=== PATIENT | female | born 1980 | race African-American/Black ===

== ENCOUNTER 2022-01-13 08:20 | Emergency (ER) | payer SELFPAY ==
[2022-01-13] MEDS ORDERED: HYDROCODONE/APAP 10/325 TAB ONE (08:41)
[2022-01-13] MEDS ORDERED: CLINDAMYCIN IV 150 MG/ML (4 mL) VIAL ONE (08:46)
--- NOTE | 2022-01-13 08:54 | ER ---
Nurse's Notes [facility] Name: Bre Waldron Age: 41 yrs Sex: Female : 1980 Arrival Date: 01/13/2022 Time: 08:22 Bed 5 Private MD: None, None Diagnosis: Dental Pain Presentation: 01/13 08:28 Chief complaint: Patient states: Left lower jaw tooth/gum pain for 2 days. Swelling got ll1 bad today. No fever. Coronavirus screen: Vaccine status: Patient reports receiving the 2nd dose of the covid vaccine. Client denies travel out of the [place] in the last 14 days. At this time, the client does not indicate any symptoms associated with coronavirus-19. Ebola Screen: Patient denies travel to an Ebola-affected area in the 21 days before illness onset. Initial Sepsis Screen: Does the patient meet any 2 criteria? No. Patient's initial sepsis screen is negative. Does the patient have a suspected source of infection? Yes: Other: tooth/gum pain swelling. Risk Assessment: Do you want to hurt yourself or someone else? Patient reports no desire to harm self or others. Onset of symptoms was January 12, 2022. 08:28 Method Of Arrival: Ambulatory ll1 08:28 Acuity: ANGELINE 4 ll1 Triage Assessment: 08:29 General: Appears uncomfortable, Behavior is cooperative, appropriate for age. Pain: ll1 Complains of pain in L jaw Quality of pain is described as aching. EENT: Reports pain in left jaw. 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 - Social history:: Smoking status: Patient denies any tobacco usage or history of. Screenin:29 Abuse screen: Denies threats or abuse. Nutritional screening: No deficits noted. vg1 Tuberculosis screening: No symptoms or risk factors identified. Fall Risk None identified. Assessment: 08:29 General: Appears uncomfortable, Behavior is cooperative. Pain: Complains of pain in vg1 mouth Pain currently is 10 out of 10 on a pain scale. Pain began 1 day ago. Neuro: Level of Consciousness is awake, alert, obeys commands, Oriented to person, place, time, situation. Cardiovascular: Patient's skin is warm and dry. Respiratory: Airway is patent Respiratory effort is even, unlabored. GI: No signs and/or symptoms were reported involving the gastrointestinal system. : No signs and/or symptoms were reported regarding the genitourinary system. EENT: Oral mucosa is moist. Derm: Skin is intact, is healthy with good turgor. Musculoskeletal: Swelling present in mouth. Vital Signs: 08:28 Resp 16; Temp 98.2(O); Weight 91.63 kg; Height 5 ft. 6 in. (167.64 cm); Pain 10/10; ll1 08:32 BP 143 / 94; Pulse 90; vg1 09:02 BP 118 / 66; Pulse 81; Resp 16; Pulse Ox 100% on R/A; ll1 08:28 Body Mass Index 32.60 (91.63 kg, 167.64 cm) 1 ED Course: 08:22 Patient arrived in ED. ds1 08:22 None, None is Private Physician. ds1 08:23 Chance Rogers PA is PHCP. jm 08:23 Herminio Nolasco MD is Attending Physician. jm 08:24 Shelbi Redd, RN is Primary Nurse. vg1 08:27 Arm band placed on Patient placed in an exam room, on a stretcher. ll1 08:29 Triage completed. ll1 08:29 Patient has correct armband on for positive identification. Bed in low position. Call vg1 light in reach. Side rails up X 1. Adult w/ patient. 08:53 Kwasi Shell DDS is Referral Physician. [facility] 09:02 No provider procedures requiring assistance completed. Patient did not have IV access ll1 during this emergency room visit. Administered Medications: 08:40 Drug: [place] (HYDROcodone-acetaminophen) 10 mg-325 mg 1 tabs Route: PO; vg1 09:02 Follow up: Response: No adverse reaction; Pain is decreased; RASS: Alert and Calm (0) ll1 08:51 Drug: Clindamycin 600 mg {Note: 2 mL to Left gluteus and 2 mL to Right gluteus.} Route: vg1 IM; Site: left gluteus; 09:02 Follow up: Response: No adverse reaction ll1 Outcome: 08:53 Discharge ordered by MD. tao 09:02 Discharged to home ambulatory. ll1 09:02 Condition: stable 09:02 Discharge instructions given to patient, Instructed on discharge instructions, follow up and referral plans. no drinking with medication, no driving heavy equipment, medication usage, Demonstrated understanding of instructions, follow-up care, medications, Prescriptions given X 3. 09:02 Patient left the ED. ll1 Signatures: Chance Rogers PA PA jmm Sanford, Demi ds1 Shelbi Redd, RN RN vg1 Ronan Prieto RN RN ll1 Corrections: (The following items were deleted from the chart) 08:28 08:27 Allergies: No Known Allergies; 1 ll1
--- NOTE | 2022-01-13 08:54 | EDPHYS ---
Physician Documentation [facility] Name: Bre Waldron Age: 41 yrs Sex: Female : 1980 Arrival Date: 01/13/2022 Time: 08:22 Bed 5 Private MD: None, None ED Physician Herminio Nolasco HPI: 01/13 08:30 This 41 yrs old Black Female presents to ER via Ambulatory with complaints of Facial jmm Swelling. 08:30 The patient presents with pain, swelling. Onset: The symptoms/episode began/occurred jmm gradually, 2 day(s) ago. Duration: The symptoms are continuous. Modifying factors: The symptoms are alleviated by nothing, the symptoms are aggravated by nothing. Associated signs and symptoms: Pertinent positives: pain, swelling, Pertinent negatives: fever. It is unknown whether or not the patient has had similar symptoms in the past. 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 - Social history:: Smoking status: Patient denies any tobacco usage or history of. ROS: 08:30 Constitutional: Negative for fever, chills, and weight loss, Eyes: Negative for injury, jmm pain, redness, and discharge. 08:30 ENT: Positive for dental pain. 08:30 All other systems are negative. Exam: 08:30 Head/Face: atraumatic. Eyes: EOMI, no conjunctival erythema appreciated jmm 08:30 Neck: Trachea midline, Supple Chest/axilla: Normal chest wall appearance and motion. Cardiovascular: Regular rate and rhythm. No edema appreciated Respiratory: Normal respirations, no respiratory distress appreciated Abdomen/GI: Non distended, soft Back: Normal ROM Skin: General appearance color normal MS/ Extremity: Moves all extremities, no obvious deformities appreciated, no edema noted to the lower extremities Neuro: Awake and alert Psych: Behavior is normal, Mood is normal, Patient is cooperative and pleasant 08:30 Constitutional: The patient appears alert, awake, uncomfortable. 08:30 ENT: Posterior pharynx: is normal, Dental exam: gum swelling, that is moderate, specifically in the lower left third molar (#17), lower left second molar (#18), lower left first molar (#19) and lower left second bicuspid (#20). Vital Signs: 08:28 Resp 16; Temp 98.2(O); Weight 91.63 kg; Height 5 ft. 6 in. (167.64 cm); Pain 10/10; ll1 08:32 BP 143 / 94; Pulse 90; vg1 09:02 BP 118 / 66; Pulse 81; Resp 16; Pulse Ox 100% on R/A; ll1 08:28 Body Mass Index 32.60 (91.63 kg, 167.64 cm) ll1 MDM: 08:30 Patient medically screened. [facility] 08:52 Data reviewed: vital signs, nurses notes. Counseling: I had a detailed discussion with dinh the patient and/or guardian regarding: the historical points, exam findings, and any diagnostic results supporting the discharge/admit diagnosis, the need for outpatient follow up, to return to the emergency department if symptoms worsen or persist or if there are any questions or concerns that arise at home. ED course: Patient is alert and non toxic in appearance in the ED. I do not suspect ludwigs. Patient advised to follow up with oral surgery and otherwise given strict return precautions. Patient understood and agrees with the plan of care. . Administered Medications: 08:40 Drug: [place] (HYDROcodone-acetaminophen) 10 mg-325 mg 1 tabs Route: PO; vg1 09:02 Follow up: Response: No adverse reaction; Pain is decreased; RASS: Alert and Calm (0) ll1 08:51 Drug: Clindamycin 600 mg {Note: 2 mL to Left gluteus and 2 mL to Right gluteus.} Route: vg1 IM; Site: left gluteus; 09:02 Follow up: Response: No adverse reaction ll1 Disposition: 13:24 Co-signature as Attending Physician, Herminio Nolasco MD I agree with the assessment and kdr plan of care. Disposition Summary: 01/13/22 08:53 Discharge Ordered Location: Home [facility] Condition: Stable [facility] Diagnosis - Dental Pain [facility] Followup: [facility] - With: Kwasi Shell DDS - When: 2 - 3 days - Reason: Recheck today's complaints, Continuance of care, Re-evaluation by your physician Discharge Instructions: - Discharge Summary Sheet m - Dental Pain [facility] Forms: - Medication Reconciliation Form jm - Thank You Letter jm - Antibiotic Education [facility] - Prescription Opioid Use [facility] Prescriptions: - Peridex 0.12 % Mucous Membrane mouthwash - place 15 milliliter by MUCOUS MEMBRANE route 2 times per day after brushing jmm teeth, swish in mouth for 30 seconds then spit out; 200 milliliter; Refills: 0, Product Selection Permitted - Ultracet 37.5-325 mg Oral Tablet - take 1 tablet by ORAL route every 6 hours - for up to 5 days; do not exceed 8 jmm tablets per day.; 12 tablet; Refills: 0, Product Selection Permitted - Clindamycin HCl 300 mg Oral Capsule - take 1 capsule by ORAL route every 6 hours for 10 days; 40 capsule; Refills: 0, jmm Product Selection Permitted Signatures: Herminio Nolasco MD MD kdr Mickail, Joel, PA PA jmm Garcia, Victoria, RN RN vg1 Ronan Prieto RN RN ll1 Corrections: (The following items were deleted from the chart) 08:28 08:27 Allergies: No Known Allergies; ll1 ll1
[2022-01-13 09:08] VITALS: TEMP 98.2
[2022-01-13 09:10] VITALS: BP 118/66; O2SAT 100
== END 2022-01-13 09:02 | disposition home or self-care (01) ==
LOC: ER 08:20
DX: K08.89 Other specified disorders of teeth and supporting structures (principal); Z91.030 Bee allergy status
CPT/HCPCS: S0077

== ENCOUNTER 2022-09-22 12:35 | Emergency (ER) | payer SELFPAY ==
--- OUTSIDE RECORDS SUMMARY | 2022-09-22 12:39 | XMS REPORT | Continuity of Care Document ---
:1980 Author Organization [facility] t Address [address] [place] [address] [place] [id number] Care Team Providers Name Role Phone Unavailable Unavailable Unavailable Problems This patient has no known problems. Allergies, Adverse Reactions, Alerts This patient has no known allergies or adverse reactions. Medications This patient has no known medications. Procedures This patient has no known procedures. Encounters Start End Encounter Admission Attending Care Care Encounter Source Date/Time Date/Time Type Type Clinicians Facility Department ID 2022-07-28 2022-07-28 Outpatient [facility] [id number] William 09:11:49 09:11:49 110Earl F Fabiano Results This patient has no known results.
--- NOTE | 2022-09-22 13:29 | RAD REPORT ---
EXAM DESCRIPTION: Anjali So (2 Views)09/22/2022 1:17 pm CLINICAL HISTORY: Cough COMPARISON: 2012 FINDINGS: The lungs appear clear of acute infiltrate. The heart is normal size IMPRESSION: No acute abnormalities displayed
[2022-09-22 13:57] LABS: Absolute Lymphocytes (CBC) 2.7 K/uL (0.7-4.9); Hematocrit 31.9 % (36.0-45.0); Lymphocytes % 31.3 % (15.3-44.8); MCV 74.4 fL (80-100); MPV 7.7 fL (7.6-11.3); RBC Red Blood Cell Count 4.29 M/uL (3.86-4.86)
[2022-09-22 14:07] LABS: Urine Blood Negative (Negative); Urine Glucose Negative (Negative); Urine Protein Negative (Negative); Urine pH 6.5 (5.0-7.0)
[2022-09-22 14:15] LABS: ALT/SGPT 13 U/L (13-56); AST/SGOT 11 U/L (15-37); Albumin 3.5 g/dL (3.4-5.0); Alkaline Phosphatase 118 U/L (45-117); BUN Blood Urea Nitrogen 10 mg/dL (7-18); Bicarbonate 26 mmol/L (21-32); Glomerular Filtration Rate 117 ml/min (=/>90); Glucose Level 93 mg/dL (74-106); NT PRO-BNP 177 pg/mL (<125); Potassium 3.9 mmol/L (3.5-5.1); Protein, Total 7.8 g/dL (6.4-8.2); Sodium Level 137 mmol/L (136-145)
[2022-09-22] MEDS ORDERED: NA CHLORIDE 0.9% 1,000 ML ONE (14:15)
[2022-09-22 14:17] LABS: Bilirubin Total < 0.1 mg/dL (0.2-1.0)
[2022-09-22 14:47] LABS: SARS-COV-2 RT PCR POSITIVE (NEGATIVE)
--- NOTE | 2022-09-22 14:54 | EDPHYS ---
Physician Documentation [facility] Name: Bre Waldron Age: 42 yrs Sex: Female : 1980 Arrival Date: 09/22/2022 Time: 12:37 Bed 26 Private MD: ED Physician Kimani Newton HPI: 09/22 14:44 This 42 yrs old Black Female presents to ER via Ambulatory with complaints of Flu ellen Symptoms, Breathing Difficulty. 14:44 The patient has shortness of breath at rest, with light activity. Onset: The ellen symptoms/episode began/occurred 3 day(s) ago. Duration: The symptoms are intermittent, with no pattern. The patient's shortness of breath is aggravated by coughing, is alleviated by nothing. Associated signs and symptoms: Pertinent positives: non-productive cough, productive cough. Severity of symptoms: At their worst the symptoms were mild in the emergency department the symptoms are unchanged. The patient has not experienced similar symptoms in the past. . 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 - Social history:: Smoking status: Patient denies any tobacco usage or history of. ROS: 14:48 Constitutional: Negative for fever, chills, and weight loss, Eyes: Negative for injury, ellen pain, redness, and discharge, ENT: Negative for injury, pain, and discharge, Neck: Negative for injury, pain, and swelling, Cardiovascular: Negative for chest pain, palpitations, and edema, Abdomen/GI: Negative for abdominal pain, nausea, vomiting, diarrhea, and constipation, Back: Negative for injury and pain, : Negative for injury, bleeding, discharge, and swelling, MS/Extremity: Negative for injury and deformity, Skin: Negative for injury, rash, and discoloration, Neuro: Negative for headache, weakness, numbness, tingling, and seizure, Psych: Negative for depression, anxiety, suicide ideation, homicidal ideation, and hallucinations, Allergy/Immunology: Negative for hives, rash, and allergies, Endocrine: Negative for neck swelling, polydipsia, polyuria, polyphagia, and marked weight changes, Hematologic/Lymphatic: Negative for swollen nodes, abnormal bleeding, and unusual bruising. 14:48 Cardiovascular: Positive for 14:48 Respiratory: Positive for cough, hemoptysis, shortness of breath, at rest. Exam: 14:48 Constitutional: This is a well developed, well nourished patient who is awake, alert, ellen and in no acute distress. Head/Face: Normocephalic, atraumatic. Eyes: Pupils equal round and reactive to light, extra-ocular motions intact. Lids and lashes normal. Conjunctiva and sclera are non-icteric and not injected. Cornea within normal limits. Periorbital areas with no swelling, redness, or edema. ENT: Nares patent. No nasal discharge, no septal abnormalities noted. Tympanic membranes are normal and external auditory canals are clear. Oropharynx with no redness, swelling, or masses, exudates, or evidence of obstruction, uvula midline. Mucous membranes moist. Neck: Trachea midline, no thyromegaly or masses palpated, and no cervical lymphadenopathy. Supple, full range of motion without nuchal rigidity, or vertebral point tenderness. No Meningismus. Chest/axilla: Normal chest wall appearance and motion. Nontender with no deformity. No lesions are appreciated. Cardiovascular: Regular rate and rhythm with a normal S1 and S2. No gallops, murmurs, or rubs. Normal PMI, no JVD. No pulse deficits. Respiratory: Lungs have equal breath sounds bilaterally, clear to auscultation and percussion. No rales, rhonchi or wheezes noted. No increased work of breathing, no retractions or nasal flaring. Abdomen/GI: Soft, non-tender, with normal bowel sounds. No distension or tympany. No guarding or rebound. No evidence of tenderness throughout. Back: No spinal tenderness. No costovertebral tenderness. Full range of motion. Female : Normal external genitalia. Skin: Warm, dry with normal turgor. Normal color with no rashes, no lesions, and no evidence of cellulitis. MS/ Extremity: Pulses equal, no cyanosis. Neurovascular intact. Full, normal range of motion. Neuro: Awake and alert, GCS 15, oriented to person, place, time, and situation. Cranial nerves II-XII grossly intact. Motor strength 5/5 in all extremities. Sensory grossly intact. Cerebellar exam normal. Normal gait. Psych: Awake, alert, with orientation to person, place and time. Behavior, mood, and affect are within normal limits. 14:48 Musculoskeletal/extremity: Extremities: all appear grossly normal, with no appreciated pain with palpation, ROM: no acute changes, intact in all extremities, Circulation is intact in all extremities. Sensation intact. Compartment Syndrome exam of affected extremity: is normal. DVT Exam: No signs of deep vein thrombosis. no pain, no swelling, no tenderness, negative Homans' sign noted on exam, no appreciated bluish discoloration, no erythema, no increased warmth. Vital Signs: 12:58 BP 183 / 98; Pulse 92; Resp 18; Temp 97.9; Pulse Ox 100% ; Weight 97.52 kg; Height 5 ap3 ft. 5 in. (165.10 cm); 14:00 BP 159 / 102; Pulse 80; Resp 16; Pulse Ox 100% on R/A; eh3 15:00 BP 183 / 101; Pulse 88; Resp 18; Pulse Ox 100% on R/A; eh3 12:58 Body Mass Index 35.78 (97.52 kg, 165.10 cm) ap3 MDM: 12:39 Patient medically screened. ellen 14:51 Differential diagnosis: asthma, Bronchitis CHF exacerbation, Chronic Obstructive ellen Pulmonary Disease pneumonia, pulmonary edema, Pulmonary Embolism reactive airway disease, Sepsis Unstable Angina. Antibiotic administration: The patient is discharged and will get outpatient antibiotics, Zithromax. The patient's Wells Deep Vein Thrombosis Score was calculated as follows: No Risks (0 Pts). The patient's pulmonary embolism risk score was calculated as follows: Total Score: 0-2 points. This patient was found to be at low risk for a pulmonary embolism by using the Well's assessment criteria. Immunization status:. Data reviewed: vital signs, nurses notes, lab test result(s), radiologic studies, plain films. Data interpreted: school bus monitor: not applicable for this patient encounter. rate is 92 beats/min, rhythm is regular. Test interpretation: by ED physician or midlevel provider: plain radiologic studies. Counseling: I had a detailed discussion with the patient and/or guardian regarding: the historical points, exam findings, and any diagnostic results supporting the discharge/admit diagnosis, lab results, radiology results, the need for outpatient follow up, for definitive care, a family practitioner. 09/22 12:39 Order name: CBC with Diff; Complete Time: 14:33 [facility] 09/22 12:39 Order name: Comprehensive Metabolic Panel; Complete Time: 14:33 [facility] 09/22 12:39 Order name: Blood Culture Adult (2) [facility] 09/22 12:39 Order name: Lactate w/ 2H reflex if indic.; Complete Time: 14:33 [facility] 09/22 12:39 Order name: COVID-19/FLU A+B [facility] 09/22 12:39 Order name: BNP; Complete Time: 14:33 [facility] 09/22 12:39 Order name: Chest Pa And Lat (2 Views) XRAY; Complete Time: 14:33 [facility] 09/22 12:39 Order name: Urine Dipstick-Ancillary (obtain specimen); Complete Time: 14:08 [facility] 09/22 12:39 Order name: Urine Test (obtain specimen); Complete Time: 14:08 [facility] 09/22 14:07 Order name: Urine Dipstick-Ancillary; Complete Time: 14:33 [facility] 09/22 14:15 Order name: Urine --Ancillary (enter results); Complete Time: 14:33 bd Administered Medications: 14:30 Drug: NS 0.9% 1000 ml Route: IV; Rate: 1 bolus; Site: right antecubital; 3 15:30 Follow up: IV Status: IV converted to saline lock; IV Intake: 600ml [facility] 15:30 Drug: Zithromax (azithromycin) 500 mg Route: PO; 3 15:30 Follow up: Response: Medication administered at discharge. 3 15:30 Drug: Pepcid (famotidine) 40 mg Route: PO; 3 15:30 Follow up: Response: Medication administered at discharge. 3 Disposition Summary: 09/22/22 14:53 Discharge Ordered Location: Home ellen Problem: new ellen Symptoms: have improved ellen Condition: Stable ellen Diagnosis - Coronavirus infection, unspecified ellen - SARS-associated coronavirus as the cause of diseases classified elsewhere ellen - Acute upper respiratory infection, unspecified ellen Followup: ellen - With: Private Physician - When: 2 - 3 days - Reason: Recheck today's complaints, Continuance of care, Re-evaluation by your physician Followup: ellen - With: Brennen Nielson DO - When: As needed - Reason: Discharge Instructions: - Discharge Summary Sheet ellen - Upper Respiratory Infection, Adult ellen - Cool Mist Vaporizer ellen - Upper Respiratory Infection, Adult, [id number] ellen - Cough, Adult ellen - COVID-19 ellen - COVID-19 Frequently Asked Questions [facility] - Things to Know about the COVID-19 Pandemic - [facility] - 10 Things You Can Do to Manage Your COVID-19 Symptoms at Home - [facility] Forms: - Medication Reconciliation Form [facility] - Thank You Letter ellen - Antibiotic Education [facility] - Prescription Opioid Use [facility] Prescriptions: - Paxlovid (EUA) 150 mg x 2- 100 mg Oral tablet - take 3 tablet by ORAL route 2 times per day per package directions; 30 tablet; ellen Refills: 0, Product Selection Permitted - budesonide 180 mcg/actuation Inhalation aerosol powdr breath activated - inhale 2 puff by INHALATION route 2 times per day; 1 Pump; Refills: 0, Product [facility] Selection Permitted - Tessalon Perles 100 mg Oral Capsule - take 2 capsule by ORAL route every 8 hours As needed; 36 capsule; Refills: 0, [facility] Product Selection Permitted - Pepcid 20 mg Oral Tablet - take 1 tablet by ORAL route every 12 hours for 21 days; 42 tablet; Refills: 0, [facility] Product Selection Permitted - Zithromax Z-Ramesh 250 mg Oral Tablet - take 1 tablet by ORAL route as directed for 5 days Day 1 - take two (2) tablets [facility] one time. Day 2, 3, 4 , 5 take one (1) tablet once daily.; 6 tablet; Refills: 0, Product Selection Permitted Signatures: Dispatcher [employer] Kimani Hernandez MD MD cha Prokisch, Amanda, RN RN ap3 Yakelin August RN RN eh3
--- NOTE | 2022-09-22 14:54 | ER ---
Nurse's Notes [facility] Name: Bre Waldron Age: 42 yrs Sex: Female : 1980 Arrival Date: 09/22/2022 Time: 12:37 Bed 26 Private MD: Diagnosis: Coronavirus infection, unspecified;SARS-associated coronavirus as the cause of diseases classified elsewhere;Acute upper respiratory infection, unspecified Presentation: 09/22 12:58 Chief complaint: Patient states: she has had flu symptoms since Tuesday09/20/2022. ap3 Patient complains of cough, congestion, body aches, chills, and bloody mucous. Coronavirus screen: Client presents with at least one sign or symptom that may indicate coronavirus-19. Ebola Screen: No symptoms or risks identified at this time. Initial Sepsis Screen: Does the patient meet any 2 criteria? No. Patient's initial sepsis screen is negative. Does the patient have a suspected source of infection? No. Patient's initial sepsis screen is negative. Risk Assessment: Do you want to hurt yourself or someone else? Patient reports no desire to harm self or others. Onset of symptoms was September 20, 2022. 12:58 Method Of Arrival: Ambulatory ap3 12:58 Acuity: ANGELINE 3 ap3 Triage Assessment: 13:02 General: Appears uncomfortable, Behavior is calm. Pain: Complains of pain in ap3 generalized body aches. EENT: Reports nasal congestion. Neuro: Level of Consciousness is awake, alert, obeys commands, Oriented to person, place, time, situation. Cardiovascular: Patient's skin is warm and dry. Respiratory: Reports cough that is Airway is patent Respiratory effort is even, unlabored, Respiratory pattern is regular, symmetrical, Onset: The symptoms/episode began/occurred gradually, the patient has mild shortness of breath. 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 - Social history:: Smoking status: Patient denies any tobacco usage or history of. Screenin:02 Abuse screen: Denies threats or abuse. Nutritional screening: No deficits noted. ap3 Tuberculosis screening: No symptoms or risk factors identified. 13:15 [facility] ED Fall Risk Assessment (Adult) History of falling in the last 3 months, eh3 including since admission No falls in past 3 months (0 pts) Confusion or Disorientation No (0 pts) Intoxicated or Sedated No (0 pts) Impaired Gait No (0 pts) Mobility Assist Device Used No (0 pt) Altered Elimination No (0 pt) Score/Fall Risk Level 0 - 2 = Low Risk. Assessment: 13:15 General: Appears in no apparent distress. uncomfortable, Behavior is calm, cooperative, eh3 appropriate for age. Pain: Complains of pain in "my whole body aches". Neuro: Level of Consciousness is awake, alert, obeys commands, Oriented to person, place, time, situation. Cardiovascular: Capillary refill < 3 seconds Patient's skin is warm and dry. Rhythm is sinus rhythm. Respiratory: Airway is patent Respiratory effort is even, unlabored, Respiratory pattern is regular, symmetrical, Breath sounds are clear Breath sounds are coarse bilaterally. GI: Abdomen is round non-distended. : No signs and/or symptoms were reported regarding the genitourinary system. EENT: No signs and/or symptoms were reported regarding the EENT system. Derm: No signs and/or symptoms reported regarding the dermatologic system. Musculoskeletal: Circulation, motion, and sensation intact. Range of motion: intact in all extremities. 14:00 Reassessment: Patient appears in no apparent distress at this time. Patient and/or eh3 family updated on plan of care and expected duration. Pain level reassessed. Patient is alert, oriented x 3, equal unlabored respirations, skin warm/dry/pink. 15:00 Reassessment: Patient appears in no apparent distress at this time. Patient and/or eh3 family updated on plan of care and expected duration. Pain level reassessed. Patient is alert, oriented x 3, equal unlabored respirations, skin warm/dry/pink. Vital Signs: 12:58 BP 183 / 98; Pulse 92; Resp 18; Temp 97.9; Pulse Ox 100% ; Weight 97.52 kg; Height 5 ap3 ft. 5 in. (165.10 cm); 14:00 BP 159 / 102; Pulse 80; Resp 16; Pulse Ox 100% on R/A; eh3 15:00 BP 183 / 101; Pulse 88; Resp 18; Pulse Ox 100% on R/A; eh3 12:58 Body Mass Index 35.78 (97.52 kg, 165.10 cm) ap3 ED Course: 12:37 Patient arrived in ED. rg4 12:37 Kimani Newton MD is Attending Physician. ellen 13:01 Triage completed. ap3 13:02 Arm band placed on right wrist. ap3 13:03 Patient has correct armband on for positive identification. Adult w/ patient. ap3 13:13 COVID-19/FLU A+B Sent. ap3 13:15 Pulse ox on. NIBP on. Door closed. Noise minimized. Warm blanket given. eh3 13:17 Yakelin August, RN is Primary Nurse. eh3 13:18 Chest Pa And Lat (2 Views) XRAY In Process Unspecified. EDMS 14:17 Inserted saline lock: 20 gauge in right antecubital area, using aseptic technique. zm Blood collected. 14:17 Blood Culture Adult (2) Sent. zm 14:52 Brennen Nielson DO is Referral Physician. [facility] 15:34 No provider procedures requiring assistance completed. IV discontinued, intact, eh3 bleeding controlled, No redness/swelling at site. Pressure dressing applied. Administered Medications: 14:30 Drug: NS 0.9% 1000 ml Route: IV; Rate: 1 bolus; Site: right antecubital; eh3 15:30 Follow up: IV Status: IV converted to saline lock; IV Intake: 600ml eh3 15:30 Drug: Zithromax (azithromycin) 500 mg Route: PO; eh3 15:30 Follow up: Response: Medication administered at discharge. eh3 15:30 Drug: Pepcid (famotidine) 40 mg Route: PO; eh3 15:30 Follow up: Response: Medication administered at discharge. eh3 Medication: 15:34 VIS not applicable for this client. eh3 Intake: 15:30 IV: 600ml; Total: 600ml. eh3 Outcome: 14:53 Discharge ordered by . ellen 15:34 Discharged to home ambulatory, with family. eh3 15:34 Condition: stable 15:34 Discharge instructions given to patient, family, Instructed on discharge instructions, follow up and referral plans. medication usage, Demonstrated understanding of instructions, follow-up care, medications, Prescriptions given X 4. 15:35 Patient left the ED. eh3 Signatures: Dispatcher [employer] EDKimani Piedra MD MD cha Garcia, Rubi rg4 Leilani Ojeda, RN RN [email or web address] Yakelin August, RN RN eh3 Rosalinda Gastelum
[2022-09-22] MEDS ORDERED: FAMOTIDINE 20 MG TAB ONE (15:26)
[2022-09-22] MEDS ORDERED: AZITHROMYCIN 250 MG TAB ONE (15:26)
[2022-09-22 15:58] VITALS: TEMP 97.9; O2SAT 100
[2022-09-22 16:00] VITALS: BP 183/101
== END 2022-09-22 15:35 | disposition home or self-care (01) ==
LOC: ER 12:35
DX: U07.1 COVID-19 (principal); Z91.030 Bee allergy status
CPT/HCPCS: 0240U; 36415; 71046; 80053; 81003; 81025; 83605; 83880; 85025; 87040; 96360; 99284; J7030; Q0144

== ENCOUNTER → 2023-12-03 | Emergency (ER) | payer SELFPAY ==
[~2023-12-03] MED LIST: HYDROCODONE/APAP 7.5/325 MG TAB ONE
--- OUTSIDE RECORDS SUMMARY | 2023-12-03 10:44 | XMS REPORT | Continuity of Care Document ---
Author Name Unknown Address [address] [place] [address] [facility] Address [address] [place] [address] Care Team Providers Care Fast Food Attendant Name Role Phone Unavailable Unavailable Unavailable Encounters Start Date/Time End Date/Time Encounter Type Admission Type Attending Clinicians [facility] Care Department Encounter ID Source 2022-12-31 08:34:26 2022-12-31 08:34:26 Outpatient [facility] [id number] William Avinash Mario 2022-12-02 09:39:32 2022-12-02 09:39:32 Outpatient [facility] [id number] William Avinash Mario 2022-11-16 09:08:42 2022-11-16 09:08:42 Outpatient [facility] [id number] William Avinash Fabiano 2022-07-28 09:11:49 2022-07-28 09:11:49 Outpatient [facility] [id number] William Avinash Mario Results Test Description Test Time Test Comments Results Result Co mments Source TSH, THIRD [id number] 05:06:15* Test Item Value Reference Range Interpretation Comme [facility] TSH, THIRD GENERATION (test code = 2821) 1.630 UIU/ML 0.400-4.100 HEMOGLOBIN [id number] 05:02:08* Test Item Value Reference Range Interpretation Comme [facility] HEMOGLOBIN A1c (test code = 02931) 5.2 % 4.2-5.6 CBC W/AUTO DIFF WITH [id number] 03:26:29* Test Item Value Reference Range Interpretation Comme [facility] WBC (test code = 1001) 9.4 K/UL 3.5-11.0 RBC (test code = 1002) 3.77 M/UL 3.80-5.40 L HEMOGLOBIN (test code = 1003) 9.3 G/DL 11.5-15.5 L HEMATOCRIT (test code = 1004) 29.7 % 34.0-45.0 L MCV (test code = 1005) 78.8 fL 80.0-99.0 L MCH (test code = 1006) 24.7 PG 25.0-33.0 L MCHC (test code = 1007) 31.3 G/DL 31.0-36.0 RDW (test code = 1038) 14.5 % 11.5-15.0 NEUTROPHILS (test code = 1008) 62.7 % LYMPHOCYTES (test code = 1010) 29.7 % MONOCYTES (test code = 1011) 5.8 % EOSINOPHILS (test code = 1012) 1.3 % BASOPHILS (test code = 1013) 0.3 % IMMATURE GRANULOCYTES (test code = 1036) 0.2 % NUCLEATED RBCS (test code = 1065) 0.0 /100 WBC'S See_Comment [Automated messa ge] The system which generated this result transmitted reference range: 0.0. The reference range was not used to interpret this result as normal/abnormal. PLATELET COUNT (test code = 1015) 475 K/UL 130-400 H ABSOLUTE NEUTROPHILS (test code = 1066) 5.87 K/UL 1.50-7.50 ABSOLUTE LYMPHOCYTES (test code = 1067) 2.78 K/UL 1.00-4.00 ABSOLUTE MONOCYTES (test code = 1068) 0.54 K/UL 0.20-1.00 ABSOLUTE EOSINOPHILS (test code = 1040) 0.12 K/UL 0.00-0.50 ABSOLUTE BASOPHILS (test code = 1069) 0.03 K/UL 0.00-0.20 ABS IMMATURE GRANULOCYTES (test code = 1020) 0.02 K/UL 0.00-0.10 ABS NUCLEATED RBCS (test code = 35873) 0.00 K/UL 0.00-0.11 COMPREHENSIVE METABOLIC [id number] 03:21:18* Test Item Value Reference Range Interpretation Comme nts GLUCOSE (test code = 2217) 93 MG/DL 70-99 BUN (test code = 2208) 13 MG/DL 6-20 CREATININE (test code = 2214) 0.83 MG/DL 0.60-1.30 eGFR (2020 CKD-EPI) (test code = ) 90 ML/MIN/1.73 >60 CALC BUN/CREAT (test code = 2234) 16 RATIO 6-28 SODIUM (test code = 2230) 141 MEQ/L 133-146 POTASSIUM (test code = 2227) 4.0 MEQ/L 3.5-5.4 CHLORIDE (test code = 2214) 105 MEQ/L 95-107 CARBON DIOXIDE (test code = 2205) 24 MEQ/L 19-31 CALCIUM (test code = 2208) 9.0 MG/DL 8.5-10.5 PROTEIN, TOTAL (test code = 2228) 7.2 G/DL 6.1-8.3 ALBUMIN (test code = 2200) 4.2 G/DL 3.5-5.2 CALC GLOBULIN (test code = 2239) 3.0 G/DL 1.9-3.7 CALC A/G RATIO (test code = 2233) 1.4 RATIO 1.0-2.6 BILIRUBIN, TOTAL (test code = 2206) <0.2 MG/DL See_Comment [Automated me ssage] The system which generated this result transmitted reference range: <=1.2. The reference range was not used to interpret this result as normal/abnormal. ALKALINE PHOSPHATASE (test code = 2203) 139 U/L 40-113 H AST (test code = 2217) 17 U/L 9-40 ALT (test code = 2218) 9 U/L 5-40 LIPID [id number] 03:21:18* Test Item Value Reference Range Interpretation Comme nts CHOLESTEROL (test code = 221) 164 MG/DL <200 TRIGLYCERIDES (test code = 2232) 128 MG/DL <150 HDL CHOLESTEROL (test code = 2220) 49 MG/DL >39 CALC LDL CHOL (test code = 223) 93 MG/DL <100 NOTE: CALCULATED LDL IS BASED ON URIEL-ANDRADE METHOD WHICHINCLUDES ADJUSTABLE TRIGLYCERIDE:VLDL CHOLESTEROL RATIO.THIS FACTOR VARIES BY MEASURED TRIGLYCERIDE AND NON-HDLCHOLESTEROL CONCENTRATIONS WITH INCREASED CALCULATED LDL SEENIN HIGHER TRIGLYCERIDE OR LOWER NON-HDL SPECIMENS. FOR MOREINFORMATION, SEE CLIENT ANNOUNCEMENT AT [email or web address] RISK RATIO LDL/HDL (test code = 2238) 1.90 RATIO <3.22
--- NOTE | 2023-12-03 11:50 | RAD REPORT ---
EXAM DESCRIPTION: RAD - Knee Right 3 View - 12/03/2023 11:43 am CLINICAL HISTORY: Pain;Swelling COMPARISON: No comparisons FINDINGS: Severe osteoarthritis is present particularly involving the lateral compartment with there is [id number]. Moderate osteoarthritis is seen in the other compartments. Small to moderate suprap atellar joint effusion. No fracture.
--- NOTE | 2023-12-03 12:42 | RAD REPORT ---
EXAM DESCRIPTION: US - Extremity Venous Uni Ltd - 12/03/2023 12:36 pm CLINICAL HISTORY: Pain;Swelling Leg swelling and edema. COMPARISON: EXT VENOUS UNI LTD dated 10/17/2013 FINDINGS: Right lower extremity venous system was interrogated with Doppler technique. Normal flow, compressibility and augmentation was noted. There is no DVT present.Moderate Herrera's cyst. IMPRESSION: No evidence of right lower extremity deep venous thrombosis.
--- NOTE | 2023-12-03 12:57 | EDPHYS ---
Physician Documentation [facility] Name: rBe Waldron Age: 43 yrs Sex: Female : 1980 Arrival Date: 12/03/2023 Time: 10:41 Bed 16 Private MD: ED Physician Garrett Abraham HPI: 12/02 11:46 This 43 yrs old Black Female presents to ER via Ambulatory with complaints of Leg Pain sb4 - right. 11:46 Patient states that she injured her right knee several years ago, is unsure how. She sb4 states the pain comes and goes but today it has been worse. She states the pain is in her upper knee and radiates up her thigh. She denies any recent travel, history of tobacco abuse or blood clots. No history of gout. Has been taking Aleve for the pain. 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 - Social history:: Smoking status: Patient denies any tobacco usage or history of. ROS: 11:46 Constitutional: Negative for fever, chills, and weight loss, sb4 11:46 MS/extremity: Positive for pain, of the right leg, 11:46 All other systems are negative, Exam: 11:46 Constitutional: This is a well developed, well nourished patient who is awake, alert, sb4 and in no acute distress. Head/Face: Normocephalic, atraumatic. Eyes: Extra-ocular motions intact. Periorbital areas with no swelling, redness, or edema. ENT: Mucous membranes moist. Cardiovascular: Regular rate and rhythm with a normal S1 and S2. Respiratory: Lungs have equal breath sounds bilaterally, clear to auscultation and percussion. No rales, rhonchi or wheezes noted. No increased work of breathing, no retractions or nasal flaring. Abdomen/GI: Soft, non-tender, no distension. Skin: Warm, dry with normal turgor. Normal color with no rashes, no lesions, and no evidence of cellulitis. Neuro: Awake and alert, GCS 15, oriented to person, place, time, and situation. Motor strength 5/5 in all extremities. Sensory grossly intact. 11:46 Musculoskeletal/extremity: Tenderness suprapatellar region with effusion. Normal ROM. Neurovascularly intact. Right leg is slightly warmer than left. No significant swelling noted. Homans' sign negative. Vital Signs: 11:18 BP 172 / 104; Pulse 104; Resp 18 S; Temp 97.8(TE); Pulse Ox 96% on R/A; Weight 113.4 kg aa5 (R); Height 5 ft. 6 in. (R); 12:35 BP 139 / 94; Pulse 85; Resp 16; Pulse Ox 93% on R/A; Pain 4/10; me1 13:13 BP 142 / 96; Pulse 82; Resp 16; Pulse Ox 95% on R/A; me1 11:18 Body Mass Index 40.35 (113.40 kg, 167.64 cm) aa5 12:35 Pain Scale: Adult me1 MDM: 11:22 Patient medically screened. sb4 11:46 Differential diagnosis: contusion, tendonitis, gout, effusion, DVT, marte's cyst. sb4 12:56 Data reviewed: vital signs, nurses notes, radiologic studies, and as a result, I will sb4 discharge patient. Counseling: I had a detailed discussion with the patient and/or guardian regarding the historical points, exam findings, and any diagnostic results supporting the discharge/admit diagnosis, radiology results, to return to the emergency department if symptoms worsen or persist or if there are any questions or concerns that arise at home. 12/02 11:32 Order name: Knee Right 3 View XRAY; Complete Time: 11:51 sb4 12/02 11:32 Order name: Extremity Venous Uni Ltd US; Complete Time: 12:45 sb4 Administered Medications: 12:07 Drug: Hydrocodone-Acetaminophen PO (7.5 mg-325 mg) 1 tabs PO once Route: PO; me1 13:03 Follow up: Response: No adverse reaction; Pain is decreased me1 Disposition: 19:08 Co-signature as Attending Physician, Garrett Abraham MD I agree with the assessment and cp3 plan of care. Disposition Summary: 12/03/23 12:57 Discharge Ordered Notes: Location: Home sb4 Problem: an ongoing problem sb4 Symptoms: have improved sb4 Condition: Stable sb4 Diagnosis - Osteoarthritis of knee, unspecified sb4 - Effusion, right knee sb4 - Pain in right knee sb4 Followup: sb4 - With: Shon Castillo MD - When: As needed - Reason: Recheck today's complaints, Re-evaluation by your physician Discharge Instructions: - Discharge Summary Sheet sb4 - Osteoarthritis sb4 - Knee Effusion, [id number] sb4 - Vitamin D Deficiency, [id number] sb4 - Calcium Content in Foods sb4 Forms: - Thank You Letter sb4 - Patient Portal Instructions sb4 - Leadership Thank You Letter sb4 Prescriptions: - Medrol (Ramesh) 4 mg Oral Tablets, Dose Pack - take 1 tablet ORAL route as directed - follow package instructions; 1 packet; sb4 Refills: 0, Product Selection Permitted Signatures: Dispatcher [employer] Garrett Christie MD MD cp3 Nancy Craig RN RN aa5 Misty Whittaker, PA-C PA-C sb4 Veronica Villalta, RN RN me1
--- NOTE | 2023-12-03 12:57 | ER ---
Nurse's Notes [facility] Name: Bre Waldron Age: 43 yrs Sex: Female : 1980 Arrival Date: 12/03/2023 Time: 10:41 Bed 16 Private MD: Diagnosis: Osteoarthritis of knee, unspecified;Effusion, right knee;Pain in right knee Presentation: 12/02 11:18 Chief complaint: Patient states: " a long time ago I hurt my right leg and I haven't aa5 gotten it checked out but it's getting worse". pt c/o pain to right leg. Coronavirus screen: At this time, the client does not indicate any symptoms associated with coronavirus-19. Ebola Screen: Patient denies travel to an Ebola-affected area in the 21 days before illness onset. Initial Sepsis Screen: Does the patient meet any 2 criteria? HR > 90 bpm. Does the patient have a suspected source of infection? No. Patient's initial sepsis screen is negative. Risk Assessment: Do you want to hurt yourself or someone else? Patient reports no desire to harm self or others. Onset of symptoms is unknown. 11:18 Method Of Arrival: Ambulatory aa5 11:18 Acuity: ANGELINE 3 aa5 Triage Assessment: 11:30 General: Appears in no apparent distress. uncomfortable, Behavior is calm, cooperative, bp appropriate for age. Pain: Complains of pain in right leg. 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 - Social history:: Smoking status: Patient denies any tobacco usage or history of. Screenin:30 [facility] ED Fall Risk Assessment (Adult) History of falling in the last 3 months, bp including since admission No falls in past 3 months (0 pts) Confusion or Disorientation No (0 pts) Intoxicated or Sedated No (0 pts) Impaired Gait No (0 pts) Mobility Assist Device Used No (0 pt) Altered Elimination No (0 pt) Score/Fall Risk Level 0 - 2 = Low Risk. Abuse screen: Denies threats or abuse. Denies injuries from another. Nutritional screening: No deficits noted. Tuberculosis screening: No symptoms or risk factors identified. Assessment: 11:30 General: SEE TRIAGE NOTE. bp 12:00 General: Appears uncomfortable, well groomed, well developed, well nourished, Behavior me1 is calm, cooperative, appropriate for age. Pain: Complains of pain in right leg Pain does not radiate. Pain currently is 9 out of 10 on a pain scale. Quality of pain is described as Pain began gradually, pain to Rt leg for a while but it is getting worse. Neuro: Level of Consciousness is awake, alert, obeys commands, Oriented to person, place, time, situation, Appropriate for age. Cardiovascular: Capillary refill < 3 seconds Patient's skin is warm and dry. Respiratory: Airway is patent Trachea midline Respiratory effort is even, unlabored, Respiratory pattern is regular, symmetrical. Musculoskeletal: Reports pain in right leg. Vital Signs: 11:18 BP 172 / 104; Pulse 104; Resp 18 S; Temp 97.8(TE); Pulse Ox 96% on R/A; Weight 113.4 kg aa5 (R); Height 5 ft. 6 in. (R); 12:35 BP 139 / 94; Pulse 85; Resp 16; Pulse Ox 93% on R/A; Pain 4/10; me1 13:13 BP 142 / 96; Pulse 82; Resp 16; Pulse Ox 95% on R/A; me1 11:18 Body Mass Index 40.35 (113.40 kg, 167.64 cm) aa5 12:35 Pain Scale: Adult mo1 ED Course: 10:44 Patient arrived in ED. im 10:44 Misty Whittaker PA-C is PHCP. sb4 10:44 Garrett Abraham MD is Attending Physician. sb4 11:18 Arm band placed on. aa5 11:19 Triage completed. aa5 11:24 Yury Amezquita, MYLA is Primary Nurse. bp 11:30 Patient has correct armband on for positive identification. bp 11:42 Knee Right 3 View XRAY Sent. bp 11:42 Extremity Venous Uni Ltd US Sent. bp 11:45 Knee Right 3 View XRAY In Process Unspecified. EDMS 12:00 Provided Education on: POC. Verbalized understanding. . me1 12:00 No provider procedures requiring assistance completed. me1 12:35 Veronica Villalta, RN is Primary Nurse. me1 12:38 Extremity Venous Uni Ltd US In Process Unspecified. EDMS 12:56 Shon Castillo MD is Referral Physician. sb4 13:13 IV discontinued, intact, bleeding controlled, No redness/swelling at site. Pressure me1 dressing applied. Administered Medications: 12:07 Drug: Hydrocodone-Acetaminophen PO (7.5 mg-325 mg) 1 tabs PO once Route: PO; me1 13:03 Follow up: Response: No adverse reaction; Pain is decreased me1 Medication: 11:30 VIS not applicable for this client. bp Outcome: 12:57 Discharge ordered by MD. sb4 13:13 Discharged to home ambulatory, with significant other, me1 13:13 Condition: stable 13:13 Discharge instructions given to patient, significant other, Instructed on discharge instructions, follow up and referral plans. medication usage, Demonstrated understanding of instructions, follow-up care, medications, Prescriptions given X 1, 13:14 Patient left the ED. me1 Signatures: Dispatcher [employer] EDID Nancy Craig, RN RN aa5 Yury Amezquita, RN RN Misty Acevedo, PA-C PA-C sb4 Juanita Tapia Veronica Villalta, RN RN me1 Corrections: (The following items were deleted from the chart) 11:20 11:18 Initial Sepsis Screen: Does the patient meet any 2 criteria? No. Patient's aa5 initial sepsis screen is negative. Does the patient have a suspected source of infection? No. Patient's initial sepsis screen is negative. aa5
[2023-12-03 13:47] VITALS: BP 142/96; TEMP 97.8; O2SAT 95
== END ==
LOC: ER 10:41
DX: M17.11 Unilateral primary osteoarthritis, right knee (principal); M25.461 Effusion, right knee
CPT/HCPCS: 93971; 99283

== ENCOUNTER 2024-11-15 17:47 | Emergency (ER) | payer SELFPAY ==
--- OUTSIDE RECORDS SUMMARY | 2024-11-15 17:50 | XMS REPORT | Continuity of Care Document ---
Author Name Unknown Address [address] [facility] [address] [place] [address] [facility] thconnect Address [address] [facility] [address] [place] [address] Care Team Providers Care Risk And Insurance Consultant Name Role Phone Unavailable Unavailable Unavailable Encounters Start Date/Time End Date/Time Encounter Type Admission Type Attending [facility] Facility Care Department Encounter ID Source 2022-12-31 08:34:26 2022-12-31 08:34:26 Outpatient [facility] [id number] William Avinash Mario 2022-12-02 09:39:32 2022-12-02 09:39:32 Outpatient [facility] [id number] William Avinash Mario 2022-11-16 09:08:42 2022-11-16 09:08:42 Outpatient [facility] [id number] William Mario 2022-07-28 09:11:49 2022-07-28 09:11:49 Outpatient [facility] [id number] William Avinash Mario Results Test Description Test Time Test Comments Results Result Co mments Source TSH, THIRD [id number] 05:06:15* Test Item Value Reference Range Interpretation Comme nts TSH, THIRD GENERATION (test code = 2821) 1.630 UIU/ML 0.400-4.100 HEMOGLOBIN [id number] 05:02:08* Test Item Value Reference Range Interpretation Comme nts HEMOGLOBIN A1c (test code = 10298) 5.2 % 4.2-5.6 CBC W/AUTO DIFF WITH [id number] 03:26:29* Test Item Value Reference Range Interpretation Comme nts WBC (test code = 1001) 9.4 K/UL [...] 0.00-0.10 ABS NUCLEATED RBCS (test code = 68674) 0.00 K/UL 0.00-0.11 COMPREHENSIVE METABOLIC [id number] 03:21:18* Test Item Value Reference Range Interpretation Comme nts GLUCOSE (test code = 2217) 93 MG/DL 70-99 BUN (test code = 2208) 13 MG/DL 6-20 CREATININE (test code = 2213) 0.83 MG/DL 0.60-1.30 eGFR (2020 CKD-EPI) (test [...] code = 2218) 9 U/L 5-40 LIPID [id number] 03:21:18* Test Item Value Reference Range Interpretation Comme nts CHOLESTEROL (test code = 2209) 164 MG/DL <200 TRIGLYCERIDES (test code = 2232) 128 MG/DL <150 HDL CHOLESTEROL (test code = 2219) 49 MG/DL >39 CALC LDL CHOL (test code = 2236) 93 MG/DL <100 NOTE: CALCULATED LDL IS BASED ON URIEL-ANDRADE METHOD WHICHINCLUDES ADJUSTABLE TRIGLYCERIDE:VLDL CHOLESTEROL RATIO.THIS FACTOR VARIES BY MEASURED TRIGLYCERIDE AND NON-HDLCHOLESTEROL CONCENTRATIONS WITH INCREASED CALCULATED LDL SEENIN HIGHER TRIGLYCERIDE OR LOWER NON-HDL SPECIMENS. FOR MOREINFORMATION, SEE CLIENT ANNOUNCEMENT AT [email or web address] RISK RATIO LDL/HDL (test code = 2238) 1.90 RATIO <3.22
[2024-11-15] MEDS ORDERED: ONDANSETRON 4 MG/2 ML VIAL ONE (18:14)
[2024-11-15] MEDS ORDERED: NA CHLORIDE 0.9% 1,000 ML ONE (18:14)
[2024-11-15] MEDS ORDERED: KETOROLAC 30 MG/ML INJ ONE (18:14)
[2024-11-15 18:50] LABS: Absolute Lymphocytes (CBC) 1.3 K/uL (0.7-4.9); Absolute Monocytes 0.5 K/uL (0.1-1.3); Absolute Neutrophil 2.6 K/uL (1.8-8.0); Basophils % 0.3 % (0-1.3); Hematocrit 28.5 % (36.0-45.0); Hemoglobin 9.1 g/dL (12.0-15.0); Lymphocytes % 28.7 % (15.3-44.8); MCHC 32.1 g/dL (32.0-36.0); MCV 71.8 fL (80-100); MPV 7.7 fL (7.6-11.3); Monocytes % 11.6 % (3.3-12.3); Neutrophils % 59.4 % (41.7-73.7); Nucleated Red Blood Cells % 0.2 % (0-0); Platelets 295 thou/uL (152-406); RBC Red Blood Cell Count 3.97 M/uL (3.86-4.86); Red Cell Distribution Width 15.2 % (12.1-15.2)
--- NOTE | 2024-11-15 18:50 | RAD REPORT ---
EXAM: Chest Single View HISTORY: 44 years Female Congestion;Cough COMPARISON: 09/22/2022 FINDINGS: LUNGS/PLEURA: The lungs are clear. No pleural effusions or pneumothorax. No pulmonary edema. CARDIAC/MEDIASTINUM: The cardiac silhouette is within normal limits. UPPER ABDOMEN: No significant abnormality. BONES: No acute abnormality. LINES/TUBES/OTHER: N/A IMPRESSION: No evidence of acute cardiopulmonary disease.
[2024-11-15 19:16] LABS: Influenza A Ag Negative; Influenza B Ag Negative; SARS-CoV-2 Antigen Rapid Res Negative (Negative)
[2024-11-15 19:17] LABS: Anion Gap 6.7 mEq/L (5.0-15.0); Potassium 2.7 mEq/L (3.5-5.1)
[2024-11-15] MEDS ORDERED: POTASSIUM 25 MEQ EFFERV TAB ONE (19:29)
[2024-11-15] MEDS ORDERED: dexAMETHasone 10 MG/ML VIAL ONE (19:29)
[2024-11-15] MEDS ORDERED: DIPHENHYDRAMINE 50 MG/ML VIAL ONE (19:29)
[2024-11-15] MEDS ORDERED: METOCLOPRAMIDE 10 MG/2mL INJ ONE (19:29)
[2024-11-15] MEDS ORDERED: NA CHLORIDE 0.9% 500 ML ONE (19:29)
--- NOTE | 2024-11-15 20:10 | ER ---
Nurse's Notes [facility] Name: Bre Waldron Age: 44 yrs Sex: Female : 1980 Arrival Date: 11/15/2024 Time: 17:47 Bed 6 Private MD: Diagnosis: Acute upper respiratory infection, unspecified;Anemia, unspecified;Hypokalemia Presentation: 11/15 18:08 Chief complaint: Patient states: she has been having cough, congestion and fevers for ap3 approx 5 days. patient complains of pain 10/10. Coronavirus screen: Client presents with at least one sign or symptom that may indicate coronavirus-19. Ebola Screen: No symptoms or risks identified at this time. Initial Sepsis Screen: Does the patient meet any 2 criteria? No. Patient's initial sepsis screen is negative. Does the patient have a suspected source of infection? No. Patient's initial sepsis screen is negative. Risk Assessment: Do you want to hurt yourself or someone else? Patient reports no desire to harm self or others. Onset of symptoms was November 10, 2024. 18:08 Method Of Arrival: Ambulatory ap3 18:08 Acuity: ANGELINE 3 ap3 Triage Assessment: 18:10 General: Appears in no apparent distress. ill, Behavior is calm, cooperative, ap3 appropriate for age. Pain: Complains of pain in generalized body aches Pain currently is 10 out of 10 on a pain scale. Neuro: Level of Consciousness is awake, alert, obeys commands, Oriented to person, place, time, situation, Appropriate for age Speech is normal. Cardiovascular: Patient's skin is warm and dry. Respiratory: Reports cough that is dry, Airway is patent Respiratory effort is even, unlabored, Respiratory pattern is regular, symmetrical. 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 - Infectious Disease History:: Denies. - Social history:: Smoking status: Patient denies any tobacco usage or history of. Screenin:11 [facility] ED Fall Risk Assessment (Adult) History of falling in the last 3 months, ap3 including since admission No falls in past 3 months (0 pts) Confusion or Disorientation No (0 pts) Intoxicated or Sedated No (0 pts) Impaired Gait No (0 pts) Mobility Assist Device Used No (0 pt) Altered Elimination No (0 pt) Score/Fall Risk Level 0 - 2 = Low Risk Oriented to surroundings, Maintained a safe environment, Educated pt \T\ family on fall prevention, incl call for assistance when getting out of bed, Assessed \T\ reinforced patient's understanding of fall precautions, Hourly rounding (assess needs \T\ fall precautionary measures) done, Used ambulatory aids as needed (educated on \T\ assisted with). Abuse screen: Denies threats or abuse. Nutritional screening: No deficits noted. Tuberculosis screening: No symptoms or risk factors identified. Assessment: 18:42 General: Appears in no apparent distress. comfortable, Behavior is calm, cooperative, ld1 appropriate for age. Pain: Complains of pain in face Pain does not radiate. Pain currently is 8 out of 10 on a pain scale. Quality of pain is described as throbbing, Pain began suddenly, Is continuous. Neuro: Level of Consciousness is awake, alert, obeys commands, Oriented to person, place, time, situation, Appropriate for age. Cardiovascular: Capillary refill < 3 seconds Patient's skin is warm and dry. Rhythm is sinus rhythm. Respiratory: Airway is patent Respiratory effort is even, unlabored. GI: Abdomen is flat, non-distended, Reports nausea. : No signs and/or symptoms were reported regarding the genitourinary system. EENT: No signs and/or symptoms were reported regarding the EENT system. Derm: No signs and/or symptoms reported regarding the dermatologic system. Musculoskeletal: No signs and/or symptoms reported regarding the musculoskeletal system. 19:22 Reassessment: Patient appears in no apparent distress at this time. Patient and/or bm8 family updated on plan of care and expected duration. Pain level reassessed. Patient is alert, oriented x 3, equal unlabored respirations, skin warm/dry/pink. Pain: Complains of pain in head Pain currently is 9 out of 10 on a pain scale. Quality of pain is described as aching. Neuro: Level of Consciousness is awake, alert, obeys commands, Oriented to person, place, time, situation, Appropriate for age. Cardiovascular: Reports chest pain, from cough Capillary refill < 3 seconds in bilateral fingers Patient's skin is warm and dry. Rhythm is sinus rhythm. Respiratory: Airway is patent Respiratory effort is even, unlabored, Respiratory pattern is regular, symmetrical, Breath sounds are clear bilaterally. GI: Abdomen is flat, non-distended, Reports nausea. : No signs and/or symptoms were reported regarding the genitourinary system. EENT: No signs and/or symptoms were reported regarding the EENT system. Derm: No signs and/or symptoms reported regarding the dermatologic system. Musculoskeletal: No signs and/or symptoms reported regarding the musculoskeletal system. 20:17 Reassessment: Patient appears in no apparent distress at this time. Patient and/or bm8 family updated on plan of care and expected duration. Pain level reassessed. Patient is alert, oriented x 3, equal unlabored respirations, skin warm/dry/pink. Patient denies pain at this time. Patient states feeling better. Patient states symptoms have improved. Vital Signs: 18:08 BP 150 / 95; Pulse 85; Resp 17; Temp 98; Pulse Ox 97% ; Weight 83.91 kg; Pain 10/10; ap3 18:42 BP 126 / 93; Pulse 77; Resp 18; Pulse Ox 100% on R/A; ld1 19:24 BP 119 / 80; Pulse 78; Resp 18; Temp 98; Pulse Ox 100% ; Pain 9/10; bm8 20:17 BP 115 / 80; Pulse 81; Resp 17; Temp 98; Pulse Ox 100% ; Pain 0/10; bm8 18:08 Pain Scale: Adult ap3 19:24 Pain Scale: Adult bm8 20:17 Pain Scale: Adult bm8 [place] Coma Score: 19:24 Eye Response: spontaneous(4). Motor Response: obeys commands(6). Verbal Response: bm8 oriented(5). Total: 15. 20:17 Eye Response: spontaneous(4). Motor Response: obeys commands(6). Verbal Response: bm8 oriented(5). Total: 15. ED Course: 17:49 Patient arrived in ED. jj6 17:49 [facility]itt[facility] sb4 17:49 Kuldip Rodriguez MD is Attending Physician. sb4 18:10 Triage completed. ap3 18:12 Arm band placed on right wrist. ap3 18:42 Group A Streptococcus Rapid Sent. ld1 18:42 COVID-19 Ag + Flu A+B Ag Sent. ld1 18:42 Test, Serum Sent. ld1 18:42 BMP Sent. ld1 18:42 CBC with Diff Sent. ld1 18:42 Inserted saline lock: 20 gauge in right antecubital area, using aseptic technique. ld1 Blood collected. Flushed with 10 mL NS. 18:43 Radha Resendez, RN is Primary Nurse. ld1 18:43 Patient has correct armband on for positive identification. Placed in gown. Bed in low ld1 position. Call light in reach. Side rails up X2. school lunch monitor on. Pulse ox on. NIBP on. Door closed. Noise minimized. Warm blanket given. 18:43 No provider procedures requiring assistance completed. ld1 18:46 Chest Single View XRAY In Process Unspecified. EDMS 20:17 Provided Education on: post er care. bm8 20:17 IV discontinued, intact, bleeding controlled, No redness/swelling at site. Pressure bm8 dressing applied. Administered Medications: 18:41 Drug: Ketorolac IVP 15 mg IVP once Route: IVP; Site: right antecubital; ld1 20:19 Follow up: Response: No adverse reaction bm8 18:41 Drug: Ondansetron IVP 4 mg IVP once; over 2 minutes Route: IVP; Site: right antecubital;ld1 20:19 Follow up: Response: No adverse reaction bm8 18:42 Drug: NS 0.9% IV 1000 ml IV at 1 bolus Per protocol; to be given as a bolus over 60 ld1 minutes Route: IV; Rate: 1 bolus; Site: right antecubital; 20:20 Follow up: Response: No adverse reaction; IV Status: Completed infusion; IV Intake: bm8 1000ml 19:34 Drug: metoCLOPramide IVP 10 mg IVP once; over 1 to 2 minutes Route: IVP; Site: right bm8 antecubital; 20:19 Follow up: Response: No adverse reaction bm8 19:34 Drug: diphenhydrAMINE IVP 25 mg IVP once Route: IVP; Site: right antecubital; bm8 20:19 Follow up: Response: No adverse reaction bm8 19:34 Drug: Decadron - Dexamethasone IVP 10 mg IVP once Route: IVP; Site: right antecubital; bm8 20:19 Follow up: Response: No adverse reaction bm8 19:34 Drug: Potassium PO Effervescent Tablet 50 mEq PO once; dissolve in 4 ounces of water or bm8 juice Route: PO; 20:19 Follow up: Response: No adverse reaction bm8 19:35 Drug: NS 0.9% IV 500 ml IV at bolus once; to be given as a bolus over 30 minutes Route: bm8 IV; Rate: bolus; Site: right antecubital; 20:19 Follow up: Response: No adverse reaction; IV Status: Completed infusion; IV Intake: bm8 500ml 20:17 Drug: Rocephin IV 1 grams IV at calculated rate once; Given slow IV push per pharmacy bm8 instructions Route: IV; Rate: calculated rate; Site: right antecubital; 20:18 Follow up: Response: No adverse reaction; Medication Administered at Departure; IV bm8 Status: Completed infusion Medication: 20:17 VIS not applicable for this client. bm8 Intake: 20:19 IV: 500ml; Total: 500ml. bm8 20:20 IV: 1000ml; Total: 1500ml. bm8 Outcome: 20:10 Discharge ordered by . sb4 20:17 Discharged to home ambulatory, with family, bm8 20:17 Condition: stable 20:17 Discharge instructions given to patient, family, Instructed on discharge instructions, follow up and referral plans. no drinking with medication, no driving heavy equipment, medication usage, safety practices, Demonstrated understanding of instructions, follow-up care, medications, Prescriptions given X 2, 20:27 Patient left the ED. bm8 Signatures: Dispatcher [employer] EDMS Leilani Ojeda RN RN ap3 Radha Resendez RN RN ld1 Audrey Patino6 Misty Whittaker PAHimanshu PAHimanshu harry4 Donny Paredes RN RN bm8
--- NOTE | 2024-11-15 20:10 | EDPHYS ---
Physician Documentation [facility] Name: Bre Waldron Age: 44 yrs Sex: Female : 1980 Arrival Date: 11/15/2024 Time: 17:47 Bed 6 Private MD: ED Physician Kuldip Rodriguez HPI: 11/15 18:09 This 44 yrs old Black Female presents to ER via Unassigned with complaints of Flu sb4 Symptoms. 18:09 productive \T\ painful cough, congestion, body aches, hoarse voice, nausea, and vomiting sb4 x 4 days. has similar symptoms. taking dayquil and nyquil without any improvement in symptoms. 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 - Infectious Disease History:: Denies. - Social history:: Smoking status: Patient denies any tobacco usage or history of. ROS: 18:10 MS/Extremity: Negative for injury and deformity, sb4 18:10 Constitutional: Positive for body aches, fatigue, malaise, 18:10 Respiratory: Positive for cough, with green sputum, 18:10 Abdomen/GI: Positive for nausea and vomiting, 18:10 All other systems are negative, Exam: 18:10 Head/Face: Normocephalic, atraumatic. Eyes: Extra-ocular motions intact. Periorbital sb4 areas with no swelling, redness, or edema. ENT: Mucous membranes moist. Cardiovascular: Regular rate and rhythm with a normal S1 and S2. Respiratory: No increased work of breathing, no retractions or nasal flaring. Abdomen/GI: Soft, non-tender, no distension. Skin: Warm, dry with normal turgor. Normal color with no rashes, no lesions, and no evidence of cellulitis. MS/ Extremity: Pulses equal, no cyanosis. Neurovascular intact. Full, normal range of motion. Neuro: Awake and alert, GCS 15, oriented to person, place, time, and situation. Motor strength 5/5 in all extremities. Sensory grossly intact. 18:10 Constitutional: The patient appears alert, awake, uncomfortable, 18:10 Respiratory: Breath sounds: are clear throughout, Vital Signs: 18:08 BP 150 / 95; Pulse 85; Resp 17; Temp 98; Pulse Ox 97% ; Weight 83.91 kg; Pain 10/10; ap3 18:42 BP 126 / 93; Pulse 77; Resp 18; Pulse Ox 100% on R/A; ld1 19:24 BP 119 / 80; Pulse 78; Resp 18; Temp 98; Pulse Ox 100% ; Pain 9/10; bm8 20:17 BP 115 / 80; Pulse 81; Resp 17; Temp 98; Pulse Ox 100% ; Pain 0/10; bm8 18:08 Pain Scale: Adult ap3 19:24 Pain Scale: Adult bm8 20:17 Pain Scale: Adult bm8 [place] Coma Score: 19:24 Eye Response: spontaneous(4). Motor Response: obeys commands(6). Verbal Response: bm8 oriented(5). Total: 15. 20:17 Eye Response: spontaneous(4). Motor Response: obeys commands(6). Verbal Response: bm8 oriented(5). Total: 15. MDM: 18:03 Medical Screening Exam initiated sb4 20:09 Data reviewed: vital signs, nurses notes, lab test result(s), radiologic studies, and sb4 as a result, I will discharge patient. Counseling: I had a detailed discussion with the patient and/or guardian regarding the historical points, exam findings, and any diagnostic results supporting the discharge/admit diagnosis, lab results, radiology results, the need for outpatient follow up, for definitive care, to return to the emergency department if symptoms worsen or persist or if there are any questions or concerns that arise at home. 11/15 18:08 Order name: CBC with Diff; Complete Time: 18:54 sb4 11/15 18:08 Order name: BMP; Complete Time: 19:24 sb4 11/15 18:08 Order name: Test, Serum; Complete Time: 19:09 sb4 11/15 18:08 Order name: COVID-19 Ag + Flu A+B Ag; Complete Time: 19:24 sb4 11/15 18:08 Order name: Group A Streptococcus Rapid; Complete Time: 19:09 sb4 11/15 19:17 Order name: Throat Culture EDMS 11/15 18:08 Order name: Chest Single View XRAY; Complete Time: 18:51 sb4 11/15 18:08 Order name: IV Start; Complete Time: 18:42 sb4 Administered Medications: 18:41 Drug: Ketorolac IVP 15 mg IVP once Route: IVP; Site: right antecubital; ld1 20:19 Follow up: Response: No adverse reaction bm8 18:41 Drug: Ondansetron IVP 4 mg IVP once; over 2 minutes Route: IVP; Site: right antecubital;ld1 20:19 Follow up: Response: No adverse reaction bm8 18:42 Drug: NS 0.9% IV 1000 ml IV at 1 bolus Per protocol; to be given as a bolus over 60 ld1 minutes Route: IV; Rate: 1 bolus; Site: right antecubital; 20:20 Follow up: Response: No adverse reaction; IV Status: Completed infusion; IV Intake: bm8 1000ml 19:34 Drug: metoCLOPramide IVP 10 mg IVP once; over 1 to 2 minutes Route: IVP; Site: right bm8 antecubital; 20:19 Follow up: Response: No adverse reaction bm8 19:34 Drug: diphenhydrAMINE IVP 25 mg IVP once Route: IVP; Site: right antecubital; bm8 20:19 Follow up: Response: No adverse reaction bm8 19:34 Drug: Decadron - Dexamethasone IVP 10 mg IVP once Route: IVP; Site: right antecubital; bm8 20:19 Follow up: Response: No adverse reaction bm8 19:34 Drug: Potassium PO Effervescent Tablet 50 mEq PO once; dissolve in 4 ounces of water or bm8 juice Route: PO; 20:19 Follow up: Response: No adverse reaction bm8 19:35 Drug: NS 0.9% IV 500 ml IV at bolus once; to be given as a bolus over 30 minutes Route: bm8 IV; Rate: bolus; Site: right antecubital; 20:19 Follow up: Response: No adverse reaction; IV Status: Completed infusion; IV Intake: bm8 500ml 20:17 Drug: Rocephin IV 1 grams IV at calculated rate once; Given slow IV push per pharmacy bm8 instructions Route: IV; Rate: calculated rate; Site: right antecubital; 20:18 Follow up: Response: No adverse reaction; Medication Administered at Departure; IV bm8 Status: Completed infusion Disposition Summary: 11/15/24 20:10 Discharge Ordered Notes: Location: Home sb4 Problem: new sb4 Symptoms: have improved sb4 Condition: Stable sb4 Diagnosis - Acute upper respiratory infection, unspecified sb4 - Anemia, unspecified sb4 - Hypokalemia sb4 Followup: sb4 - With: Emergency Department - When: As needed - Reason: Trouble breathing, Worsening of condition Discharge Instructions: - Discharge Summary Sheet sb4 - Upper Respiratory Infection, Adult, Dimd-gy-[id number] sb4 - Iron Deficiency Anemia, Adult, Kvld-jh-[id number] sb4 - Hypokalemia sb4 Forms: - Work release form sb4 - Patient Portal Instructions sb4 - Leadership Thank You Letter sb4 Prescriptions: - Augmentin 875-125 mg Oral Tablet - take 1 tablet ORAL route every 12 hours for 10 days; 20 tablet; Refills: 0, sb4 Product Selection Permitted - Prednisone 20 mg Oral Tablet - take 1 tablet ORAL route once daily for 5 days; 5 tablet; Refills: 0, Product sb4 Selection Permitted Addendum: 11/19/2024 16:36 Co-signature as Attending Physician, Kuldip Rodriguez MD I reviewed the patient's care r n provided by the Advanced Practice Provider and agree with the diagnosis and treatment plan. Signatures: Dispatcher [employer] Kuldip Manning MD MD rn Prokisch, Amanda RN RN ap3 Radha Resendez RN RN ld1 Misty Whittaker PA-C PATwanC sb4 Donny Paredes RN RN bm8 Corrections: (The following items were deleted from the chart) 11/15 18:08 18:08 CBC+H.LAB.BRZ ordered. EDMS EDMS 18:08 18:08 BASIC METABOLIC PANEL+C.LAB.BRZ ordered. EDMS EDMS 18:08 18:08 TEST, SERUM+SC.LAB.BRZ ordered. EDMS EDMS 18:08 18:08 COVID-19 Ag + Flu A+B Ag+I.LAB.BRZ ordered. EDMS EDMS 18:08 18:08 Group A Streptococcus Rapid Sc+I.LAB.BRZ ordered. EDMS EDMS 18:11 18:09 . sb4 sb4
[2024-11-15] MEDS ORDERED: CEFTRIAXONE 1000 MG/VIAL ONE (20:14)
[2024-11-15 20:32] VITALS: TEMP 98
[2024-11-15 20:34] VITALS: O2SAT 100
[2024-11-15 20:37] VITALS: BP 115/80
== END 2024-11-15 20:27 | disposition home or self-care (01) ==
LOC: ER 17:47
DX: J06.9 Acute upper respiratory infection, unspecified (principal); D64.9 Anemia, unspecified; E87.6 Hypokalemia; Z11.52 Encounter for screening for COVID-19
CPT/HCPCS: 36415; 71045; 80048; 84703; 85025; 87070; 87428; 96361; 96374; 96375; 99285; J0696; J1100; J1200; J2405; J2765; J7030; J7040